=== PATIENT | male | born 1945 | race Caucasian/White ===

== ENCOUNTER 2024-06-24 06:47 | Day surgery (SDC) | payer MEDICARE, OTHER ==
[~2024-06-24] VITALS: Ht 165.1 cm; Wt 78.2 kg
[2024-06-24] MEDS ORDERED: LIDOCAINE 4% 50 ML SOLUTION TP ONE (06:48)
[2024-06-24] MEDS ORDERED: BENZOCAINE 20% 50 MCG/SPRAY 57 GM TP ONE (06:48)
[2024-06-24] MEDS ORDERED: LIDOCAINE 2% 11 ML JELLY TP ONE (06:48)
[2024-06-24] MEDS ORDERED: ALBUTEROL SULFATE 2.5 MG/0.5 ML NEB SOLUTION NEB ONE (06:48)
[2024-06-24] MEDS ORDERED: SODIUM CHLORIDE 0.9% 1,000 ML ONE (07:06)
[2024-06-24] MEDS: SODIUM CHLORIDE 0.9% 1,000 ML IV ONE (07:41)
[2024-06-24] MEDS ORDERED: MIDAZOLAM HCL 2 MG/2 ML VIAL ONE (07:57)
[2024-06-24] MEDS ORDERED: FentaNYL CITRATE PF 100 MCG/2 ML VIAL ONE (07:57)
[2024-06-24] MEDS ORDERED: ALEN70TA80 PO (08:03)
[2024-06-24] MEDS ORDERED: AMLO-257 PO (08:03)
[2024-06-24] MEDS ORDERED: LOSA-381 PO (08:03)
[2024-06-24] MEDS ORDERED: METO-391 PO (08:03)
[2024-06-24] MEDS ORDERED: TAMS0.4C94 PO (08:03)
[2024-06-24] MEDS ORDERED: ATOR20TA65 PO (08:03)
[2024-06-24] MEDS ORDERED: FINA5TAB41 PO (08:03)
[2024-06-24] MEDS ORDERED: ASPI-1444 PO (08:03)
[2024-06-24] MEDS ORDERED: POTA-206 PO (08:03)
[2024-06-24 09:56] VITALS: PULSE 82; RESP 15; O2SAT 97
[2024-06-24] MEDS: MethylPREDNISolone SOD SUCC 125 MG/2 ML VIAL IVP ONE (10:34)
== END 2024-06-24 12:15 | disposition home or self-care (01) ==
LOC: SURGERY 06:47
PROVIDERS: ATTEND Internal Medicine Critical Care Medicine
DX: R05.3 Chronic cough (principal); R06.2 Wheezing; R49.0 Dysphonia; R04.2 Hemoptysis; R06.1 Stridor; R91.8 Other nonspecific abnormal finding of lung field; B37.0 Candidal stomatitis; R60.0 Localized edema; Z87.891 Personal history of nicotine dependence; Z95.818 Presence of other cardiac implants and grafts; Z79.82 Long term (current) use of aspirin; Z79.899 Other long term (current) drug therapy; Z88.8 Allergy status to other drugs, medicaments and biological substances
CPT/HCPCS: 31623; 87206; 87101; 87220; 87070; 88108; 31624; 94640; 71045; 87015; J3010; J2250; J7030; J7613; Z7610